=== PATIENT | male | born 1975 | race Caucasian/White ===

== ENCOUNTER 2018-10-14 19:27 | Emergency (ER) | payer OTHER ==
[2018-10-14 20:01] LABS: BASOPHILS # (AUTO) 0.3 10^3/uL (0.0-0.1); BASOPHILS % (AUTO) 3.6 %; EOSINOPHILS % (AUTO) 0.4 %; HGB - HEMOGLOBIN 14.9 g/dL (14.0-18.0); LYMPHOCYTES # (AUTO) 1.3 10^3/uL (1.5-3.5); LYMPHOCYTES % (AUTO) 18.1 %; MEAN CORPUSCULAR HEMOGLOBIN 30.8 pg (27.0-31.0); MEAN CORPUSCULAR HGB CONC 34.6 g/dL (32.0-36.0); MEAN PLATELET VOLUME 7.4 fL (7.4-11.4); MONOCYTES # (AUTO) 0.7 10^3/uL (0.0-1.0); MONOCYTES % (AUTO) 10.1 %; NEUTROPHILS # (AUTO) 4.9 10^3/uL (1.5-6.6); NEUTROPHILS % (AUTO) 67.8 %; PLT - PLATELET COUNT 191 10^3/uL (130-450); RED BLOOD COUNT 4.85 10^6/uL (4.70-6.10); RED CELL DISTRIBUTION WIDTH 13.4 % (12.0-15.0); WHITE BLOOD COUNT 7.2 x10^3/uL (4.8-10.8)
[2018-10-14 20:15] LABS: ALBUMIN 4.8 g/dL (3.2-5.5); ALBUMIN/GLOBULIN RATIO 1.5 (1.0-2.2); BILIRUBIN,TOTAL 1.8 mg/dL (0.2-1.0); CALCIUM 9.5 mg/dL (8.5-10.3); CREATININE 0.8 mg/dL (0.6-1.2); TOTAL PROTEIN 7.9 g/dL (6.7-8.2)
--- NOTE | 2018-10-14 20:33 | XRAY Report ---
Reason: Chest pain Procedure Date: 10/14/2018 Accession Number: [id number] / [id number] Procedure: XR - Chest 1 View X-Ray CPT Code: 73221 FULL RESULT: EXAM: CHEST RADIOGRAPHY EXAM DATE: 10/14/2018 08:05 PM. CLINICAL HISTORY: Chest pain. COMPARISON: None. TECHNIQUE: 1 view. FINDINGS: Lungs/Pleura: No dense consolidation. No large effusion or pneumothorax. No pulmonary edema. Mediastinum: Heart and mediastinal contours are unremarkable. Other: None. IMPRESSION: No acute radiographic pulmonary abnormalities. RADIA
--- NOTE | 2018-10-14 20:53 | ED Physician Documentation ---
PD HPI CHEST PAIN - Stated complaint Stated Complaint: CP - Chief complaint Chief Complaint: Cardiac - History obtained from History obtained from: Patient - History of Present Illness Timing - onset: Today Timing - details: Gradual onset, Waxing and waning Pain level now: 3 Quality: Pain Location: Left chest Radiation: Jaw Improved by: Nothing Worsened by: Other (no exacerbating factors) Associated symptoms: Shortness of air (resolved), Cough. No: Diaphoresis, Nausea, Vomiting, Palpitations Similar symptoms before: Has not had sx before Recently seen: Not recently seen - Additional information Additional information: "all day I haven't been feeling right" (per patient). While driving to work this morning, experienced bilateral blurry vision which then resolved. During day, "felt ill", measured blood pressure and it was 200/90. He has had waxing and waning left chest pain radiating to left jaw since approximately 6:30 PM tonight. Family history includes two first-degree relatives (sibling father) with [place] in their 30s and 40s Review of Systems Constitutional: reports: Reviewed and negative Cardiac: reports: Chest pain / pressure. denies: Palpitations, Pedal edema, Calf pain Respiratory: reports: Dyspnea (resolved), Cough GI: reports: Reviewed and negative Musculoskeletal: denies: Extremity swelling Neurologic: reports: Reviewed and negative PD PAST MEDICAL HISTORY - Past Medical History Past Medical History: Yes Cardiovascular: Hypertension HEENT: Other - Past Surgical History Past Surgical History: Yes Ortho: Other - Allergies Allergies/Adverse Reactions: Allergies Allergy/AdvReac Type Severity Reaction Status Date / Time Penicillins Allergy Unknown Verified 10/14/18 19:37 - Social History Does the pt smoke?: No Smoking Status: Never smoker Does the pt drink ETOH?: Yes Does the pt have substance abuse?: No - Immunizations Immunizations are current?: Yes PD ED PE NORMAL - Vitals Vital signs reviewed: Yes - General General: Alert and oriented X 3, No acute distress, Well developed/nourished - HEENT HEENT: Moist mucous membranes - Neck Neck: Supple, no meningeal sign - Cardiac Cardiac: RRR, No murmur, No gallop, No rub - Respiratory Respiratory: No respiratory distress, Clear bilaterally - Abdomen Abdomen: Soft, Non tender - Derm Derm: Normal color - Extremities Extremities: No edema Results - Vitals Vitals: Vital Signs - 24 hr 10/14/18 10/14/18 10/14/18 19:34 20:13 22:00 Temperature 36.2 C L Heart Rate 96 86 79 Respiratory 18 16 15 Rate Blood Pressure 193/103 H 160/95 H 157/91 H O2 Saturation 96 95 97 10/14/18 22:37 Temperature Heart Rate 86 Respiratory 15 Rate Blood Pressure 165/93 H O2 Saturation 98 Oxygen O2 Source Room air - EKG (time done) No standard instances Rate: Rate (enter#) (91) Rhythm: NSR [place]: Normal Intervals: Normal VA QRS: Normal Ischemia: Normal ST segments - Labs Labs: Laboratory Tests 10/14/18 10/14/18 10/14/18 19:45 19:45 19:45 WBC 7.2 RBC 4.85 Hgb 14.9 Hct 43.1 MCV 89.0 MCH 30.8 MCHC 34.6 RDW 13.4 Plt Count 191 MPV 7.4 Neut # (Auto) 4.9 Lymph # (Auto) 1.3 L [place] # (Auto) 0.7 Eos # (Auto) 0.0 Baso # (Auto) 0.3 H Absolute Nucleated RBC 0.01 Nucleated RBC % 0.1 Sodium 135 Potassium 3.4 L Chloride 95 L Carbon Dioxide 28 Anion Gap 12.0 BUN 12 Creatinine 0.8 Estimated GFR (MDRD) 106 Glucose 128 H Calcium 9.5 Total Bilirubin 1.8 H AST 64 H ALT 79 H Alkaline Phosphatase 59 Troponin I < 0.04 Total Protein 7.9 Albumin 4.8 Globulin 3.1 Albumin/Globulin Ratio 1.5 Lipase 27 10/14/18 22:16 WBC RBC Hgb Hct MCV MCH MCHC RDW Plt Count MPV Neut # (Auto) Lymph # (Auto) [place] # (Auto) Eos # (Auto) Baso # (Auto) Absolute Nucleated RBC Nucleated RBC % Sodium Potassium Chloride Carbon Dioxide Anion Gap BUN Creatinine Estimated GFR (MDRD) Glucose Calcium Total Bilirubin AST ALT Alkaline Phosphatase Troponin I < 0.04 Total Protein Albumin Globulin Albumin/Globulin Ratio Lipase - Rads (name of study) chest xray Radiology: Prelim report reviewed, See rad report PD MEDICAL DECISION MAKING - ED course Complexity details: reviewed results, re-evaluated patient, considered differential, d/w patient Departure - Departure Disposition: 01 Home, Self Care Clinical Impression: Chest pain Condition: Good Instructions: ED Chest Pain Atypical Unkn Cause Follow-Up: [facility] [place] [Provider Group] (Call in the morning to arrange for next available appointment) Discharge Date/Time: 10/14/18 23:13
[2018-10-14 22:38] VITALS: BP 165/93
== END 2018-10-14 23:13 | disposition home or self-care (01) ==
LOC: ED 19:27
DX: R07.9 Chest pain, unspecified (principal); I10 Essential (primary) hypertension; Z82.49 Family history of ischemic heart disease and other diseases of the circulatory system
CPT/HCPCS: 36415; 71045; 80053; 83690; 84484; 85025; 93005; 99283; 99284

== ENCOUNTER 2021-12-26 10:34 | Emergency (ER) | payer OTHER ==
[2021-12-26 10:42] VITALS: BP 147/90
[2021-12-26] MEDS ORDERED: MELOXICAM 7.5 MG TABLET PO STA (11:13)
[2021-12-26] MEDS ORDERED: DEXAMETHASONE 10 MG/ML VIAL PO STA (11:13)
--- NOTE | 2021-12-26 11:16 | ED Physician Documentation ---
PD HPI BACK PAIN - Stated complaint Stated Complaint: BACK PX, BLURRY VISION - Chief complaint Chief Complaint: Abd Pain - History obtained from History obtained from: Patient - History of Present Illness Timing - onset: How many days ago (3) Timing - duration: Days (3) Timing - details: Gradual onset Pain level max: 4 Pain level now: 3 Location: Lower, Right, Left Quality: Pain, Similar to prior episodes Associated symptoms: No: Fever, Weakness, Numbness, Incontinent of urine, Unable to urinate, Hematuria, Incontinent of stool Improves with: Rest Worsened by: Movement Contributing factors: No: Lifting, Twisting, Trauma, Anticoagulated, Cancer, IVDA, Out of meds - Additional information Additional information: Patient is a 46-year-old male who presents to the emergency department with back pain. He states this started about 3 to 4 days ago. He has had intermittent problems with his low back over the years. Described as low back, bilateral. Relates as pain. Feels better with lying still, worse with movement, coughing or going over bumps in cars. No numbness or tingling. No loss of bowel or bladder control. Denies any blurry vision to me Review of Systems Constitutional: denies: Fever, Chills GI: denies: Vomiting : denies: Unable to Void, Incontinent Skin: denies: Rash Musculoskeletal: denies: Neck pain Neurologic: denies: Focal weakness, Numbness, Headache PD PAST MEDICAL HISTORY - Past Medical History Past Medical History: Yes Cardiovascular: Hypertension HEENT: Other - Past Surgical History Past Surgical History: Yes Ortho: Other - Present Medications Home Medications: Ambulatory Orders Medication Instructions Recorded Confirmed Meloxicam [Mobic] 15 mg PO DAILY PRN #20 tablet 12/26/21 lisinopriL [Lisinopril] 40 mg PO DAILY 12/26/21 12/26/21 predniSONE [Deltasone] 10 mg PO [id number] #42 tab 12/26/21 - Allergies Allergies/Adverse Reactions: Allergies Allergy/AdvReac Type Severity Reaction Status Date / Time Penicillins Allergy Unknown Verified 12/26/21 10:39 - Social History Does the pt smoke?: No Smoking Status: Never smoker Does the pt drink ETOH?: Yes Does the pt have substance abuse?: No - Immunizations Immunizations are current?: Yes PD ED PE NORMAL - Vitals Vital signs reviewed: Yes - General General: Alert and oriented X 3, No acute distress - HEENT HEENT: Moist mucous membranes - Neck Neck: Supple, no meningeal sign - Cardiac Cardiac: RRR - Respiratory Respiratory: No respiratory distress, Clear bilaterally - Abdomen Abdomen: Soft, Non tender, Non distended - Back Back: No spinal TTP, Other (No midline tenderness to palpation or percussion. No step-off or deformity.) - Derm Derm: Warm and dry, No rash - Extremities Extremities: No edema - Neuro Neuro: Alert and oriented X 3, No motor deficit, No sensory deficit, Other (Normal bilateral lower extremity patellar and ankle jerk reflexes. Normal great toe extension bilaterally. no saddle anesthesia) - Psych Psych: Normal mood, Normal affect Results - Vitals Vitals: Vital Signs - 24 hr 12/26/21 10:40 Temperature 36.5 C Heart Rate 74 Respiratory 18 Rate Blood Pressure 147/90 H O2 Saturation 99 Oxygen O2 Source Room air PD MEDICAL DECISION MAKING - ED course Complexity details: considered differential (No cauda equina, no spinal epidural abscess, no fracture, no aortic dissection or evidence of aneursym rupture), d/w patient ED course: Patient is a 46-year-old male with back pain. Appears to be likely related to neuroforaminal stenosis versus disc protrusion. The pain is worse going over bumps in the car, coughing or sneezing. I feel this would more likely be related to a disc injury. No indication for emergent MRI. No loss of bowel or bladder control. No focal neurological deficits. We will trial him on pain medication and steroids for home. Recommend he follow-up with his PCP for an MRI and potentially physical therapy. Patient counseled regarding signs and symptoms for which I believe and urgent re-evaluation would be necessary. Patient with good understanding of and agreement to plan and is comfortable going home at this time This document was made in part using voice recognition software. While efforts are made to proofread this document, sound alike and grammatical errors may occur. Patient also feels better leaning over a grocery cart in the grocery store Departure - Departure Disposition: Home, Self Care Clinical Impression: Herniated intervertebral disc of lumbar spine Condition: Good Instructions: ED Neck Back Pain General Follow-Up: Your,doctor in 1 week [Other] Prescriptions: predniSONE [Deltasone] 10 mg PO [id number] #42 tab Meloxicam [Mobic] 15 mg PO DAILY PRN #20 tablet PRN Reason: pain Comments: Your prescriptions were sent to [facility] in [place]. Your symptoms are likely secondary to a disc that is impinging on the nerves in your back. It is recommended that you have an MRI of your lumbar spine. You could also have foraminal stenosis in your back which could be irritating the nerves as well. We will try you on anti-inflammatory medication, your doctor may want to start you on a medication such as gabapentin. Please return if you worsen. This should continue to improve with medication. Physical therapy can often help as well. Discharge Date/Time: 12/26/21 11:25
== END 2021-12-26 11:25 | disposition home or self-care (01) ==
LOC: ED 10:34
DX: M51.26 Other intervertebral disc displacement, lumbar region (principal); I10 Essential (primary) hypertension
CPT/HCPCS: 99282; A9270